=== PATIENT | female | born 1970 | race Caucasian/White ===

== ENCOUNTER 2016-07-17 11:19 | Emergency (ER) | payer MEDICAID ==
[~2016-07-17] VITALS: Wt 88.0 kg
[~2016-07-17 11:19] MED LIST: IBUP-1542 PO; PREN1TAB62 PO
[2016-07-17 13:38] LABS: BASOPHILS % 0.3 % (0.0-2.0); EOSINOPHILS # 0.1 10^3/ul (0.0-0.5); EOSINOPHILS % 2.5 % (0.0-7.0); HEMATOCRIT 37.1 % (37.0-47.0); HEMOGLOBIN 11.9 g/dl (12.0-16.0); LYMPHOCYTES # 1.5 10^3/ul (0.8-2.9); LYMPHOCYTES % 27.1 % (15.0-51.0); MEAN CORPUSCULAR HEMOGLOBIN 25.9 pg (29.0-33.0); MEAN CORPUSCULAR HGB CONC 32.2 g/dl (32.0-37.0); MEAN CORPUSCULAR VOLUME 80.4 fl (82.0-101.0); MEAN PLATELET VOLUME 9.1 fl (7.4-10.4); MONOCYTE # 0.5 10^3/ul (0.3-0.9); MONOCYTES % 8.2 % (0.0-11.0); NEUTROPHIL # 3.4 10^3/ul (1.6-7.5); NEUTROPHILS % 61.9 % (39.0-77.0); PLATELET COUNT 200 10^3/UL (140-440); RED BLOOD COUNT 4.62 10^6/ul (4.20-5.40); UNCORRECTED WBC 5.6 10^3/ul (4.8-10.8); WHITE BLOOD COUNT 5.6 10^3/ul (4.8-10.8)
[2016-07-17 13:39] LABS: CONDITION 1; LH ANALYZER COMMENTS 1; NUCLEATED RED BLOOD CELLS # 0.1 10^3/ul (0.0-0.0)
[2016-07-17 13:55] LABS: ADD UMIC YES; URINE BILIRUBIN (Dip) NEGATIVE (NEGATIVE); URINE BLOOD (Dip) 3+ (NEGATIVE); URINE COLOR LT. YELLOW (YELLOW); URINE GLUCOSE (Dip) NEGATIVE (NEGATIVE); URINE KETONES (Dip) NEGATIVE (NEGATIVE); URINE LEUKOCYTE ESTERASE (Dip) TRACE (NEGATIVE); URINE NITRITE (Dip) NEGATIVE (NEGATIVE); URINE TOTAL PROTEIN (Dip) NEGATIVE (NEGATIVE); URINE UROBILINOGEN (Dip) 0.2 E.U./dL (0.1-1.0)
[2016-07-17 14:01] LABS: SQUAMOUS EPITHELIAL CELL,UR FEW
--- NOTE | 2016-07-17 14:06 | RADRPT ---
PROCEDURE: Obstetrical ultrasound . CLINICAL INDICATION: Vaginal bleeding TECHNIQUE: Multiple sonographic images of the pelvis were obtained utilizing a transabdominal tech nique. The images were reviewed on a PACS workstation. COMPARISON: None. FINDINGS: There is a single intrauterine present with the crown-rump length measuring 1.4 cm which c orresponds to a calculated gestational age of 7 weeks and 4 days. No heart rate is noted. The right ovary measures 2.9 x 2.1 cm. The left ovary measures 2.7 x 2.4 cm. There is a cyst in th e left ovary measuring 1.2 cm. No significant free fluid is present within the pelvis. No abnormal adnexal masses are present. RPTAT: AA IMPRESSION: Single intrauterine at 7 weeks and 4 days. No heart rate noted, consistent with demise. Small simple cyst in the left ovary. .Taqueria Doran MD, MD Date Time Electronically viewed and signed by .Taqueria Doran MD, on 07/17/2016 14:06 .S/
[2016-07-17] MEDS ORDERED: CEPH-443 PO (14:19)
--- NOTE | 2016-07-17 14:24 | ERD ---
ER Documentation Chief Complaint Date/Time DATE: 07/17/16 TIME: 14:21 Chief Complaint vag bleed since yesterday. 2 mos preg. needs rhogam shot HPI Patient is a 45-year-old female who presents with vaginal bleeding that began yesterday. She is with 2 miscarriages in approximately 8 weeks at this time. She also states she knows she is Rh- and thinks she needs RhoGam. She denies any pain. She states the bleeding is light and there is no clots. She admits to dysuria and frequency. Denies nausea or vomiting. Denies fever. Has appointment with OB on Wednesday. ROS All systems reviewed and are negative except as per history of present illness. Medications Home Meds Active Scripts Cephalexin* (Keflex*) 500 Mg Capsule, 500 MG PO BID for 5 Days, CAP Prov:ANA FLETCHER PA-C 07/17/16 Ibuprofen* (Ibuprofen*) 600 Mg Tab, 600 MG PO Q6, #20 1 Refill Prov:DELIA MASSEY MD 03/09/15 Reported Medications Vit-Iron Fumarate-FA ( Vitamin Tablet) 1 Each Tablet, 1 TAB PO DAILY, TAB 02/25/15 Allergies Allergies: Coded Allergies: No Known Allergy (Unverified , 02/25/15) PMhx/Soc Medical and Surgical Hx: pt denies Medical Hx, pt denies Surgical Hx Hx Alcohol Use: No Hx Substance Use: No Hx Tobacco Use: No Smoking Status: Never smoker FmHx Family History: No diabetes Physical Exam Vitals Vital Signs Date Time Temp Pulse Resp B/P Pulse Ox O2 Delivery O2 Flow Rate FiO2 07/17/16 11:22 98.5 81 20 116/53 100 Physical Exam General: well developed, well nourished, alert, nontoxic, no distress Head: normocephalic, atraumatic Neck: Supple, nontender, no lymphadenopathy, no midline tenderness Respiratory: Clear to auscaultation bilaterally, speaks in full sentences, no use of accesory muscles or labored breathing, no rales, ronchi, or wheezing Cardiovascular: RRR, No murmurs GI: soft, non tender, non distended, negative murphys sign, negative mcburneys point tenderness, no cva tenderness bilaterally, no rebound or guarding Result Diagram: 07/17/16 1320 Results 24 hrs Laboratory Tests Test 07/17/16 13:20 Basophils # 0.010^3/ul Basophils % 0.3% Beta HCG, Quantitative 6248.3mIU/ml Blood Morphology Comment Eosinophils # 0.110^3/ul Eosinophils % 2.5% Hematocrit 37.1% Hemoglobin 11.9g/dl Lymphocytes # 1.510^3/ul Lymphocytes % 27.1% Mean Corpuscular Hemoglobin 25.9pg Mean Corpuscular Hemoglobin Concent 32.2g/dl Mean Corpuscular Volume 80.4fl Mean Platelet Volume 9.1fl Monocytes # 0.510^3/ul Monocytes % 8.2% Neutrophils # 3.410^3/ul Neutrophils % 61.9% Nucleated Red Blood Cells # 0.110^3/ul Nucleated Red Blood Cells % 2.0/100WBC Platelet Count 18908^3/UL Red Blood Count 4.6210^6/ul Red Cell Distribution Width 15.0% Urine Bilirubin NEGATIVE Urine Clarity SLIGHTLY CLOUDY Urine Color LT. YELLOW Urine Glucose NEGATIVE% Urine Hemoglobin 3+ Urine Ketones NEGATIVE Urine Leukocyte Esterase TRACE Urine Microscopic RBC 10-25/HPF Urine Microscopic WBC 5-10/HPF Urine Nitrite NEGATIVE Urine Specific [place] 1.010 Urine Squamous Epithelial Cells FEW Urine Total Protein NEGATIVE Urine Urobilinogen 0.2 E.U./dL Urine pH 6.0 White Blood Count 5.610^3/ul Procedures/MDM Patient is 45-year-old female who presents with light vaginal bleeding that began yesterday. Vital signs are within normal limits and she has no pain. Her blood work shows beta hCG of 6248 and furthermore ultrasound shows single intrauterine at 7 weeks 4 days and there is no heart tones noted consistent with demise. Patient is hemodynamically stable. Mild evidence of cystitis on urinalysis and plus she is symptomatic and therefore I will treat her Keflex. She was also given copies of her labs and ultrasound report that she can follow primary care and I recommended she return in 2 days for a follow-up trending of beta hCGs and ultrasound. Patient is Rh- and therefore she will be given RhoGam before discharge. Reviewed chart with Dr. Doug stratton who agrees with the plan. Recommended this patient follow up with her primary care doctor within 48 hours or return to the emergency room for any worsening of symptoms. However this time I do believe there is suitable for outpatient management. I answered all their questions and they agreed with the plan and were discharged home. Departure Diagnosis: Primary Impression: demise Condition: Stable Patient Instructions: Miscarriage (Incomplete) Additional Instructions: Call your primary care doctor TOMORROW for an appointment during the next 1-2 days.See the doctor sooner or return here if your condition worsens before your appointment time. ANA FLETCHER PA-C Jul 17, 2016 14:24
[2016-07-17 15:30] VITALS: BP 125/65; PULSE 77; RESP 18
== END 2016-07-17 15:31 | disposition home or self-care (01) ==
LOC: FTE 11:19
DX: O02.1 Missed abortion (principal); Z3A.01 Less than 8 weeks gestation of pregnancy
CPT/HCPCS: 36415; 76801; 81001; 81003; 84702; 85025; 86900; 86901; J2790; Z7502

== ENCOUNTER 2016-07-19 03:43 | Emergency (ER) | payer SELFPAY ==
[~2016-07-19] VITALS: Ht 167.6 cm; Wt 85.0 kg
[~2016-07-19 03:43] MED LIST changes: +CEPH-443 PO
[2016-07-19 03:46] VITALS: Ht 167.6 cm; Wt 85.0 kg
== END 2016-07-19 07:21 | disposition left against medical advice (07) ==
LOC: FTE 03:43
DX: Z53.21 Procedure and treatment not carried out due to patient leaving prior to being seen by health care provider (principal)

== ENCOUNTER 2018-06-08 18:39 | Emergency (ER) | END 2018-06-09 00:53 | disposition home or self-care (01) ==